=== PATIENT | female | born 1965 | race Caucasian/White ===

== ENCOUNTER 2019-08-06 09:50 | Outpatient (CLI) | payer OTHER, SELFPAY ==
--- NOTE | ~2019-08-06 | CT_ITS ---
EXAMINATION: CT brain wo/w con DATE: 08/06/2019 10:53 INDICATION: Headache. Visual disturbance. TECHNIQUE: Computed tomography (CT) of the head was performed without and subsequently with 100 cc Om nipaque 350 intravenous contrast. The mA was adjusted according to patient size. Iterative reconstruc tion technique was employed. Exam dose: 1210.67 mGy-cm total exam DLP. COMPARISON: 01/09/2016 CT brain FINDINGS: No intracranial mass lesion or hemorrhage or cerebrovascular accident, midline shift or mas s effect is evident. Normal ventricular size. Mild bilateral internal carotid artery calcification. No subdural or epidural hematoma. No orbital ma ss lesion is detected. The orbital globes appear symmetric and unremarkable. Mastoid air cells and included paranasal sinuses are normally developed and aerated. No fracture or b one destruction of the cranial vault. IMPRESSION: Cerebral atherosclerosis; no acute intracranial finding Reviewed, dictated and finalized at [facility]. Reviewed, dictated and finalized at [facility]. PACKER
== END 2019-08-06 09:51 | disposition home or self-care (01) ==
PROVIDERS: PCP Nurse Practitioner Family; Visit Provider Nurse Practitioner Family
DX: R51 Headache (principal); H53.9 Unspecified visual disturbance; I67.2 Cerebral atherosclerosis
CPT/HCPCS: 70470; Q9967

== ENCOUNTER 2024-02-14 13:54 | Outpatient (CLI) | payer OTHER, SELFPAY ==
--- NOTE | ~2024-02-14 | XR_ITS ---
3 VIEWS LUMBAR SPINE Ordering provider: Zaid Carroll, [employer] History: . Injury- Fall on ice x7 months/Low back pain . Comparison: None. FINDINGS: VERTEBRAL BODIES:Fusion of L5 and S1. No visible fracture or subluxation. DISK SPACES: Narrowing of L4-L5 disc space. Facet joint disease at the level of L2-L3 and L3-L4. . SOFT TISSUES: Right kidney stone. Vascular calcification the aorta. IMPRESSION: No acute osseous abnormality lumbar spine. Fusion of L4 and L5. Right kidney stone. Reviewed, dictated and finalized at [facility].
== END 2024-02-14 13:55 | disposition home or self-care (01) ==
LOC: CHSIMG 13:58
PROVIDERS: PCP Registered Nurse; Visit Provider Registered Nurse
DX: M54.9 Dorsalgia, unspecified (principal); M43.26 Fusion of spine, lumbar region; N20.0 Calculus of kidney
CPT/HCPCS: 72100